=== PATIENT | female | born 1995 | race Caucasian/White ===

== ENCOUNTER 2017-05-09 22:19 | Outpatient (CLI) | payer OTHER ==
[~2017-05-09] VITALS: Ht 152.4 cm; Wt 72.9 kg
[~2017-05-09 22:19] MED LIST: ETON1VAG5
[2017-05-09 23:08] VITALS: Ht 152.4 cm; Wt 72.9 kg
[2017-05-09 23:09] VITALS: BP 115/63; PULSE 86; RESP 20
--- NOTE | 2017-05-10 00:16 | RADRPT ---
PROCEDURE: Obstetrical ultrasound greater than 14 weeks CLINICAL INDICATION: Decreased movement TECHNIQUE: Real time sonographic imaging of the gravid uterus is performed transabdominally and mu ltiple static reese scale and Doppler images are submitted for review as are measurements. The image s are reviewed on the PACS. COMPARISON: No relevant exams are available FINDINGS: The cervical os is closed with a normal cervical length of 4.1 cm. There is a single living intrauterine gestation in breech presentation. The heart beat is est imated at 142 bpm. The measurements are as follows: BPD:5.03 cm HC:18.70 cm AC:16.35 cm FL:3.77 cm Estimated gestational age is 21 weeks 3 days. The estimated date of delivery is 09/16/2017. The estimated weight is 436 grams. Placenta is anterior and grade 1. There is no evidence of placenta previa or abruption. The amniotic fluid is normal, the maximum vertical pocket estimated at 5 cm. RPTAT:HJJR IMPRESSION: 1. Single viable intrauterine gestation currently in breech presentation estimated at 21 weeks 3 day s with the estimated date of delivery 09/16/2017. 2. Anterior grade 1 placenta. 3. Cervical length of 4.1 cm. Physician Vaishali Date Time Electronically viewed and signed by Physician Vaishali on 05/10/2017 00:16 /
--- NOTE | 2017-05-10 01:13 | PN ---
Triage Information Date/Time May 10, 2017 Reason for visit: DFM (22-year-old female at 22 weeks complaining of decreased movement) Weeks of Gestation 22 weeks /Para 1 para 0 Diabetes: none Hypertention: none Objective Vital Signs Date Time Temp Pulse Resp B/P Pulse Ox O2 Delivery O2 Flow Rate FiO2 05/09/17 23:09 97.9 86 20 115/63 Room Air Heart Rate: 150's Heart Rate Comments Not applicable Contractions: None Exam Cervix is long and closed by ultrasound Results/Medications Imaging Results BPD: 5.03 cm HC: 18.70 cm AC: 16.35 cm FL: 3.77 cm Estimated gestational age is 21 weeks 3 days. The estimated date of delivery is 09/16/2017. The estimated weight is 436 grams. Placenta is anterior and grade 1. There is no evidence of placenta previa or abruption. The amniotic fluid is normal, the maximum vertical pocket estimated at 5 cm. 1. Single viable intrauterine gestation currently in breech presentation estimated at 21 weeks 3 days with the estimated date of delivery 09/16/2017. 2. Anterior grade 1 placenta. 3. Cervical length of 4.1 cm. Disposition: Discharge Assessment/Plan Patient expressed a desire to go home We will follow as outpatient Upon discharge patient was feeling the movement ENRICO FRIAS MD May 10, 2017 01:13
--- NOTE | 2017-05-10 01:36 | TRIAGE ---
OB Triage Datetime Report Generated by CPN: 05/10/2017 01:35 Datetime: 05/09/2017 22:55 Stage of : OB Triage Assessment Type: Triage Maternal Assessment Level of Consciousness: Fully Conscious DTR's/Clonus: DTRs 2+; No Clonus Headache: Denies Blurred Vision: No Respiratory Effort: Unlabored; Regular Rhythm; Equal Expansion Breath Sounds, Left: Clear and Equal Breath Sounds, Right: Clear and Equal Nausea/Vomiting: Denies RUQ Epigastric Pain: Denies Lower Extremities Edema: None Degree: None Upper Extremities Edema: None Degree: None Facial Edema: None Temperature Route: Oral Fall Risk Assessment History of Falling: (0) No Secondary Diagnosis: (0) No Ambulatory Aid: (0) Bedrest/Nurse Assist IV Therapy: (0) No Gait: (0) Normal/Bedrest/Immobile Mental Status: (0) Oriented to Own Ability Fall Score: 0 Fall Risk Score Definition: No Risk: No action required Labor Evaluation Frequency: none Monitor Mode: External Resting Tone [place]: Relaxed Heart Rate FHR Baseline Rate: 135 Monitor Mode: External US FHR Baseline Changes: No Baseline Change Variability: Moderate 6-25 bpm Accelerations: 15X15 Decelerations: None Pain Assessment Pain Scale: 0 Pain Presence: None/Denies Datetime: 05/09/2017 22:54 EGA: 22.6 Datetime: 05/09/2017 22:45 Time of Arrival: 05/09/2017 22:45 Arrived By: Ambulatory Arrived From: Home Chief Complaint: pt c/o decreased FM x 2 days and not feeling movement at all today. Pt also c/o dizziness past three days increasing daily. Movement: Absent Contractions: Denies/Absent Contractions: none Rupture of Membranes: Denies Vaginal Bleeding: None Vaginal Discharge: Denies Recent Sexual Intercouse: Yes Abdominal Trauma: Not Applicable Patient Complaints: Dizziness; Other Time Provider Notified: 05/09/2017 23:15 Provider Notified: León Initial Plan: ultrasound for cervical length, EFW and NIKOLE done. Pt given po hydration and now sta viri movement felt.
== END 2017-05-10 01:34 | disposition home or self-care (01) ==
LOC: OBT 22:19 → L-D 22:22 → OBT 05-10 01:34
PROVIDERS: ATTEND Obstetrics & Gynecology
DX: O36.8120 Decreased fetal movements, second trimester, not applicable or unspecified (principal); Z3A.22 22 weeks gestation of pregnancy
CPT/HCPCS: 76815; 76817; Z7500; G0463

== ENCOUNTER 2017-05-24 12:59 | Emergency (ER) | payer SELFPAY ==
[~2017-05-24 12:59] MED LIST changes: -ETON1VAG5; +PRENAT PO
== END 2017-05-24 15:05 | disposition left against medical advice (07) ==
LOC: E/R 12:59
DX: Z53.21 Procedure and treatment not carried out due to patient leaving prior to being seen by health care provider (principal)

== ENCOUNTER 2017-05-24 17:23 | Inpatient (IN) | payer OTHER ==
[~2017-05-24] VITALS: Ht 152.4 cm; Wt 73.1 kg
--- NOTE | 2017-05-24 02:22 | PN ---
Triage Information Date/Time Reason for visit: Uterine contractions Weeks of Gestation 23 3/7 /Para 1 Diabetes: none Hypertention: none Additional information 22 Year-old G1 with SIUP at 23 3/7 weeks presents with a chief complaint of UCS. She has been receiving her care with Dr. Traore. She states good movement. She denies nausea, vomiting, shortness of breath, chest pain, headache, visual changes, vaginal bleeding or LOF. Objective Exam General: Patient appears well, alert and oriented, NAD, appropriate mood and affect ABD: gravid, soft, non-tender. Back: No CVA tenderness (B/L) LE: No clubbing, cyanosis, edema, thigh or calf tenderness bilaterally FHT: 135 bpm , moderate variability with acceleration, no deceleration-category I Contractions: Irregular SVE: Closed/thick/high/ceph/intact Assessment/Plan 22 Year-old G1 with SIUP at 23 3/7 weeks with irreg ucs. Nom CBC, U?A. She received IVF and terbutaline. There was no further ucs. She has h/o drug use, currently denies any substance use. UDS performed which was neg. FHR: No sign of metabolic acidosis- Category I. Symptoms and sign of labor, preeclampsia, kick count discussed with patient, she voiced understanding. All of her questions answered. Patient was discharged home in stable condition with the appropriate discharge instructions provided. I would like patient to have close follow-up with her primary physician or outpatient clinic in 1-2 days or return to the ER for worsening symptoms or any other urgent concerns ALE CAT May 24, 2017 02:22
[2017-05-24 17:50] VITALS: BP 109/69; PULSE 110; RESP 20
[2017-05-24 17:53] VITALS: Ht 152.4 cm; Wt 73.1 kg
--- NOTE | 2017-05-24 20:34 | HP ---
Date/Time of Note Date/Time of Note DATE: 05/24/17 TIME: 20:28 OB - History Hx of Present Free Text/Dictation Referred back to hospital to 23 weeks complaining of chest pain back pain in her lower and upper area and onset of nausea vomiting in the hospital Estimated Due Date: Sep 16, 2017 : 1 Para: 0 Care: Good Care Ultrasounds: Normal mid trimester US Obstetrical Complications: None Medical Complications: None Past Family/Social History * Past Medical, Surgical, Family and Obstetric Histories reviewed from chart. Blood Type: A+ Rubella: immune RPR/VDRL: Negative GBS Status: Unknown HBsAG: Negative OB Admission Exam Vital Signs Vital Signs patient is tachycardic Vital Signs Date Time Temp Pulse Resp B/P Pulse Ox O2 Delivery O2 Flow Rate FiO2 05/24/17 17:50 99.2 110 20 109/69 100 Room Air Physical Exam HEENT: WNL Heart: Rhythm Normal Lungs: Clear, Equal Abdomen: WNL Extremities: Normal Reflexes: Normal Cervical Dilatation: None Effacement: 0% Station: -3 Membranes: Intact Heart Rate: 150's Contractions on Admission: None OB Assessment/Plan Other Assessment: Vague chest pain Vague lower back and upper back pain 23 weeks and 4 days gestation Onset of nausea vomiting in hospital Other plan: Obtain EKG because of tachycardia Will repeat labs including CBC CMP If necessary will refer to internal medicine for follow ENRICO FRIAS MD May 24, 2017 20:34
[2017-05-24] MEDS ORDERED: AL HYDROX/MG HYDROX/SIMETH 30 ML CUP PO PRN (21:00)
[2017-05-24] MEDS ORDERED: ACETAMINOPHEN 325 MG TAB PO PRN (21:00)
[2017-05-24] MEDS ORDERED: METOCLOPRAMIDE 10 MG INJ IV PRN (21:00)
[2017-05-24] MEDS ORDERED: MEPERIDINE 25 MG INJ IM PRN (21:00)
[2017-05-24] MEDS: LACTATED RINGER'S 1,000 ML IV SCH (21:32)
[2017-05-24 21:59] LABS: BASOPHILS % 0.2 % (0.0-2.0); EOSINOPHILS % 0.1 % (0.0-7.0); HEMATOCRIT 37.2 % (37.0-47.0); HEMOGLOBIN 12.4 g/dl (12.0-16.0); LYMPHOCYTES # 1.4 10^3/ul (0.8-2.9); LYMPHOCYTES % 8.8 % (15.0-51.0); MEAN CORPUSCULAR HEMOGLOBIN 29.5 pg (29.0-33.0); MEAN CORPUSCULAR HGB CONC 33.3 g/dl (32.0-37.0); MEAN CORPUSCULAR VOLUME 88.6 fl (82.0-101.0); MEAN PLATELET VOLUME 12.4 fl (7.4-10.4); MONOCYTES % 6.3 % (0.0-11.0); NEUTROPHILS % 83.9 % (39.0-77.0); PLATELET COUNT 212 10^3/UL (140-415); RED CELL DISTRIBUTION WIDTH 13.8 % (11.5-14.5); WHITE BLOOD COUNT 16.3 10^3/ul (4.8-10.8)
--- NOTE | 2017-05-25 00:08 | TRIAGE ---
OB Triage Datetime Report Generated by CPN: 05/25/2017 00:07 Datetime: 05/24/2017 23:30 Frequency: 0 Monitor Mode: External Duration (sec)2399: DENIES Resting Tone [place]: Relaxed Pain Scale: 7 Pain Presence: Intermittent Pain Type: Pressure Pain Location: Right Chest; Left Chest Pain Relief Measures: Comfort Measures Pain Assessment Comments: PT DENIES THE NEEDS FOR PAIN MEDS AT THIS TIME,WILL CONTINUE MONITORING. Datetime: 05/24/2017 22:23 Stage of : Antepartum Assessment Type: Ongoing Assessment Level of Consciousness: Fully Conscious DTR's/Clonus: DTRs 2+; No Clonus Headache: Denies Blurred Vision: No Respiratory Effort: Unlabored; Regular Rhythm; Equal Expansion Breath Sounds, Left: Clear and Equal Breath Sounds, Right: Clear and Equal Nausea/Vomiting: Denies RUQ Epigastric Pain: Denies Lower Extremities Edema: None Degree: None Upper Extremities Edema: None Degree: None Facial Edema: None Temperature Route: Oral History of Falling: (0) No Secondary Diagnosis: (0) No Ambulatory Aid: (0) Bedrest/Nurse Assist IV Therapy: (0) No Gait: (0) Normal/Bedrest/Immobile Mental Status: (0) Oriented to Own Ability Fall Score: 0 Fall Risk Score Definition: No Risk: No action required Datetime: 05/24/2017 20:25 Stage of : OB Triage Monitor Mode: External Resting Tone [place]: Relaxed Datetime: 05/24/2017 19:29 Stage of : OB Triage Headache: Generalized Blurred Vision: No Respiratory Effort: Unlabored Breath Sounds, Left: Clear and Equal Breath Sounds, Right: Clear and Equal Nausea/Vomiting: Present RUQ Epigastric Pain: Denies Facial Edema: None Monitor Mode: External Resting Tone [place]: Relaxed Pain Scale: 6 Pain Presence: Constant Pain Type: Dull Pain Location: Back; Right Chest; Left Chest Datetime: 05/24/2017 18:51 Stage of : OB Triage Level of Consciousness: Fully Conscious Headache: Denies Nausea/Vomiting: Denies Nausea/Vomiting: Denies RUQ Epigastric Pain: Denies RUQ Epigastric Pain: Present Frequency: 0 Monitor Mode: External Monitor Mode: External US Pain Scale: 9 Pain Presence: Intermittent Pain Type: Cramping; Ache Pain Location: Back; Head; Right Chest; Left Chest Pain Goal: 2 Datetime: 05/24/2017 17:38 Stage of : OB Triage Level of Consciousness: Fully Conscious Level of Consciousness: Fully Conscious DTR's/Clonus: DTRs 2+; No Clonus DTR's/Clonus: DTRs 2+ Headache: Denies Headache: Occipital Blurred Vision: No Blurred Vision: No Respiratory Effort: Unlabored; Regular Rhythm; Equal Expansion Breath Sounds, Left: Clear and Equal Breath Sounds, Right: Clear and Equal Nausea/Vomiting: Denies Nausea/Vomiting: Denies RUQ Epigastric Pain: Denies RUQ Epigastric Pain: Present Lower Extremities Edema: None Upper Extremities Edema: None Facial Edema: None Facial Edema: None History of Falling: (0) No Secondary Diagnosis: (0) No Ambulatory Aid: (0) Bedrest/Nurse Assist IV Therapy: (0) No Gait: (0) Normal/Bedrest/Immobile Mental Status: (0) Oriented to Own Ability Fall Score: 0 Fall Risk Score Definition: No Risk: No action required Frequency: 0 Monitor Mode: External FHR Baseline Rate: 155 Monitor Mode: External US Pain Scale: 9 Pain Presence: Intermittent Pain Type: Cramping; Ache Pain Location: Back; Head; Right Chest; Left Chest Pain Goal: 2 Datetime: 05/24/2017 17:20 Time of Arrival: 05/24/2017 17:20 EGA: 23.4 Arrived By: Ambulatory Arrived From: Home Chief Complaint: chest pain/back pain/ Movement: Present Rupture of Membranes: Denies Vaginal Bleeding: None Vaginal Discharge: Denies Recent Sexual Intercouse: Denies Abdominal Trauma: Not Applicable Patient Complaints: Back Pain Time Provider Notified: 05/24/2017 20:20 Provider Notified: Dr Traore Initial Plan: fht Datetime: 05/23/2017 16:45 Fall Score: 0 Fall Risk Score Definition: No Risk: No action required Datetime: 05/23/2017 16:43 EGA: 23.3 Datetime: 05/10/2017 01:00 Fall Score: 0 Fall Risk Score Definition: No Risk: No action required Datetime: 05/09/2017 22:55 Fall Score: 0 Fall Risk Score Definition: No Risk: No action required Datetime: 05/09/2017 22:54 EGA: 21.3
[2017-05-25] MEDS: LACTATED RINGER'S 1,000 ML IV SCH (01:16)
[2017-05-25] MEDS ORDERED: PRENATAL VITAMIN PO SCH (09:00)
[2017-05-25] MEDS ORDERED: FERROUS SULFATE (EC) 325 MG TAB PO SCH (09:00)
--- NOTE | 2017-05-25 19:43 | DS ---
Date/Time of Note Date/Time of Note DATE: 05/25/17 TIME: 19:41 Obstetrical Discharge Record Final Diagnosis Final Diagnosis: not delivered Other Final Diagnosis Nausea vomiting, vague chest pain Condition on Discharge Physical Assessment Voiding: Yes Bowel Movement: Yes Breast: Soft, non-tender, Filling Fundus: Other () Abdomen and Incision: Abdomen is gravid, heart tones present Episiotomy: Not applicable Calf Tenderness: No Patient Condition: Good ENRICO FRIAS MD May 25, 2017 19:43
--- NOTE | 2017-05-25 19:44 | PD.PPDC ---
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 Provider Information Physician Information 22-year-old female was admitted for nausea vomiting and vague chest and back pains which resolved spontaneously Diagnosis Final Diagnosis: Status post observation, 23+ weeks gestation Condition Patient Condition: Good Diet Diet: Resume Regular Diet Activity/Restrictions Activity: Normal Activity May Shower Restrictions: Nothing in the Vagina Follow-up Follow-up with Physician: 4, 5, Day/Days (In clinic for follow-up) Return to clinic for [employer] Instructions: Fever greater than 101 Chills Comment: Refer back to hospital if the symptoms recur care Refer back to hospital if patient has fever and chills ENRICO FRIAS MD May 25, 2017 19:44
--- NOTE | 2017-05-26 11:12 | RADRPT ---
Vent Rate: 80 bpm RR Interval: 0 msec OK Interval: 128 msec QRS Duration: 88 msec QT Interval: 374 msec QTC Interval: 431 msec P-R-T [place]: 57 - 38 - 40 degrees Normal sinus rhythm with sinus arrhythmia Normal ECG Electronically Signed By: Garland Porras [id number]
== END 2017-05-25 20:55 | disposition home or self-care (01) | DRG 780 ==
LOC: OBT 17:23 → L-D 17:25 → OBT 20:30 → OBG 20:30
PROVIDERS: ADMIT Obstetrics & Gynecology; ATTEND Obstetrics & Gynecology
DX: O47.02 False labor before 37 completed weeks of gestation, second trimester (principal); Z3A.23 23 weeks gestation of pregnancy
CPT/HCPCS: 36415; 85025; 93005; G0463; J2765; J7120

== ENCOUNTER 2017-09-06 22:17 | Outpatient (CLI) | payer OTHER ==
[~2017-09-06] VITALS: Ht 152.4 cm; Wt 80.2 kg
[2017-09-06 22:41] VITALS: Ht 152.4 cm; Wt 80.2 kg
[2017-09-06 22:42] VITALS: BP 125/79; PULSE 117; RESP 18
[2017-09-06 23:48] LABS: BASOPHILS % 0.1 % (0.0-2.0); HEMATOCRIT 37.3 % (37.0-47.0); HEMOGLOBIN 12.7 g/dl (12.0-16.0); LYMPHOCYTES # 0.8 10^3/ul (0.8-2.9); LYMPHOCYTES % 8.5 % (15.0-51.0); MEAN CORPUSCULAR HEMOGLOBIN 28.5 pg (29.0-33.0); MEAN CORPUSCULAR VOLUME 83.8 fl (82.0-101.0); MEAN PLATELET VOLUME 12.6 fl (7.4-10.4); MONOCYTE # 0.4 10^3/ul (0.3-0.9); MONOCYTES % 4.5 % (0.0-11.0); NEUTROPHIL # 8.4 10^3/ul (1.6-7.5); NEUTROPHILS % 86.5 % (39.0-77.0); PLATELET COUNT 161 10^3/UL (140-415); RED BLOOD COUNT 4.45 10^6/ul (4.20-5.40); RED CELL DISTRIBUTION WIDTH 14.2 % (11.5-14.5); WHITE BLOOD COUNT 9.7 10^3/ul (4.8-10.8)
[2017-09-06 23:56] LABS: ADD UMIC NO; UR ASCORBIC ACID 20 mg/dL (NEGATIVE); UR BILIRUBIN (Dip) NEGATIVE (NEGATIVE); UR BLOOD (Dip) NEGATIVE (NEGATIVE); UR CLARITY SLIGHTLY CLOUDY (CLEAR); UR COLOR YELLOW (YELLOW); UR GLUCOSE (Dip) NEGATIVE (NEGATIVE); UR KETONES (Dip) 1+ mg/dL (NEGATIVE); UR LEUKOCYTE ESTERASE (Dip) NEGATIVE Leu/ul (NEGATIVE); UR MUCUS FEW /HPF (NONE SEEN); UR NITRITE (Dip) NEGATIVE (NEGATIVE); UR RBC 0 /HPF (0-5); UR SPECIFIC GRAVITY (Dip) 1.024 (1.003-1.030); UR SQUAMOUS EPITHELIAL CELL FEW /HPF (FEW); UR TOTAL PROTEIN (Dip) NEGATIVE (NEGATIVE); UR UROBILINOGEN (Dip) 1+ mg/dL (NEGATIVE)
[2017-09-07 00:02] LABS: ALBUMIN 3.6 g/dl (3.3-4.9); ALBUMIN/GLOBULIN RATIO 1.02; BILIRUBIN,INDIRECT 0.5 mg/dl (0-1.1); BILIRUBIN,TOTAL 0.5 mg/dl (0.2-1.3); CREATININE 0.62 mg/dl (0.44-1.00); POTASSIUM 3.5 mmol/L (3.5-5.1); TOTAL PROTEIN 7.1 g/dl (6.1-8.1)
--- NOTE | 2017-09-07 02:44 | TRIAGE ---
OB Triage Datetime Report Generated by CPN: 09/07/2017 02:44 Datetime: 09/07/2017 01:40 Stage of : OB Triage Datetime: 09/07/2017 01:28 Labor Evaluation Frequency: 3-5 Monitor Mode: External Duration (sec)2399: 50-120 Quality: Mild Pattern: Normal: <= 5 Contractions in 10 Minutes Resting Tone [place]: Relaxed Heart Rate FHR Baseline Rate: 140 Monitor Mode: External US FHR Baseline Changes: No Baseline Change Variability: Moderate 6-25 bpm Accelerations: 15X15 Decelerations: None Category: Category I Datetime: 09/07/2017 00:30 Labor Evaluation Frequency: 3-7 Monitor Mode: External Duration (sec)2399: 60-120 Quality: Mild Pattern: Normal: <= 5 Contractions in 10 Minutes Resting Tone [place]: Relaxed Heart Rate FHR Baseline Rate: 150 Monitor Mode: External US FHR Baseline Changes: No Baseline Change Variability: Moderate 6-25 bpm Accelerations: 15X15 Decelerations: Variable Category: Category II Comments: us picking up maternal hr Datetime: 09/06/2017 23:30 Labor Evaluation Frequency: 2-6 Monitor Mode: External Duration (sec)2399: 60-100 Quality: Mild Pattern: Normal: <= 5 Contractions in 10 Minutes Resting Tone [place]: Relaxed Heart Rate FHR Baseline Rate: 160 Monitor Mode: External US FHR Baseline Changes: No Baseline Change Variability: Moderate 6-25 bpm Accelerations: 15X15 Decelerations: None Category: Category I Datetime: 09/06/2017 23:00 Vaginal Exam Dilatation (cms): 0.0 Effacement (%): 0 Station: -4 Exam By: alf Datetime: 09/06/2017 22:44 Assessment Type: Triage Maternal Assessment Level of Consciousness: Fully Conscious DTR's/Clonus: DTRs 2+; No Clonus Headache: Denies Blurred Vision: No Respiratory Effort: Unlabored; Regular Rhythm; Equal Expansion Breath Sounds, Left: Clear and Equal Breath Sounds, Right: Clear and Equal Nausea/Vomiting: Present RUQ Epigastric Pain: Denies Lower Extremities Edema: None Degree: None Upper Extremities Edema: None Degree: None Facial Edema: None Fall Risk Assessment History of Falling: (0) No Secondary Diagnosis: (0) No Ambulatory Aid: (0) Bedrest/Nurse Assist IV Therapy: (0) No Gait: (0) Normal/Bedrest/Immobile Mental Status: (0) Oriented to Own Ability Fall Score: 0 Fall Risk Score Definition: No Risk: No action required Datetime: 09/06/2017 22:37 Stage of : OB Triage Temperature Route: Oral Datetime: 09/06/2017 22:34 Monitor Mode: External Monitor Mode: External US Datetime: 09/06/2017 22:30 Time of Arrival: 09/06/2017 22:14 EGA: 38.4 Arrived By: Ambulatory Arrived From: Home Chief Complaint: N/V/D, ABDOMINAL PAIN, PRESSURE Movement: Decreased Contractions: Denies/Absent Rupture of Membranes: Denies Vaginal Bleeding: None Vaginal Discharge: Denies Recent Sexual Intercouse: Denies Abdominal Trauma: Not Applicable Patient Complaints: Nausea; Vomiting; Other Time Provider Notified: 09/06/2017 23:10 Provider Notified: CELIA Initial Plan: VS, EFM, SVE, CBC, CMP, UA, URINE CULTURE, PO HYDRATION Datetime: 05/25/2017 20:20 Heart Rate FHR Baseline Rate: 145 Monitor Mode: External US Datetime: 05/25/2017 20:00 Labor Evaluation Frequency: 0 Monitor Mode: External Duration (sec)2399: denies Resting Tone [place]: Relaxed Pain Assessment Pain Presence: None/Denies Pain Type: N/A Datetime: 05/25/2017 19:43 Stage of : Antepartum Assessment Type: Ongoing Assessment Maternal Assessment Level of Consciousness: Fully Conscious DTR's/Clonus: DTRs 2+; No Clonus Headache: Denies Blurred Vision: No Respiratory Effort: Unlabored; Regular Rhythm; Equal Expansion Breath Sounds, Left: Clear and Equal Breath Sounds, Right: Clear and Equal Nausea/Vomiting: Denies RUQ Epigastric Pain: Denies Lower Extremities Edema: None Degree: None Upper Extremities Edema: None Degree: None Facial Edema: None Temperature Route: Oral Fall Risk Assessment History of Falling: (0) No Secondary Diagnosis: (0) No Ambulatory Aid: (0) Bedrest/Nurse Assist IV Therapy: (0) No Gait: (0) Normal/Bedrest/Immobile Mental Status: (0) Oriented to Own Ability Fall Score: 0 Fall Risk Score Definition: No Risk: No action required Pain Assessment Pain Presence: None/Denies Datetime: 05/25/2017 13:13 Pain Assessment Pain Presence: None/Denies Datetime: 05/25/2017 12:03 Pain Assessment Pain Presence: None/Denies Datetime: 05/25/2017 10:20 Headache: Denies Blurred Vision: No Nausea/Vomiting: Denies RUQ Epigastric Pain: Denies Facial Edema: None Pain Assessment Pain Presence: None/Denies Datetime: 05/25/2017 10:16 Labor Evaluation Frequency: 0 Monitor Mode: External Resting Tone [place]: Relaxed Heart Rate FHR Baseline Rate: 140 Comments: aga Datetime: 05/25/2017 08:58 Labor Evaluation Frequency: 0 Monitor Mode: External Resting Tone [place]: Relaxed Datetime: 05/25/2017 07:50 Assessment Type: Ongoing Assessment Maternal Assessment Level of Consciousness: Fully Conscious DTR's/Clonus: DTRs 2+; No Clonus Headache: Denies Blurred Vision: No Respiratory Effort: Unlabored; Regular Rhythm; Equal Expansion Breath Sounds, Left: Clear and Equal Breath Sounds, Right: Clear and Equal Nausea/Vomiting: Denies RUQ Epigastric Pain: Denies Facial Edema: None Fall Risk Assessment History of Falling: (0) No Secondary Diagnosis: (0) No Ambulatory Aid: (0) Bedrest/Nurse Assist Gait: (0) Normal/Bedrest/Immobile Mental Status: (0) Oriented to Own Ability Datetime: 05/25/2017 07:48 Labor Evaluation Frequency: 0 Monitor Mode: External Resting Tone [place]: Relaxed Datetime: 05/25/2017 05:10 Labor Evaluation Frequency: 0 Monitor Mode: External Resting Tone [place]: Relaxed Datetime: 05/25/2017 04:10 Labor Evaluation Frequency: 0 Monitor Mode: External Duration (sec)2399: DENIES Resting Tone [place]: Relaxed Datetime: 05/25/2017 03:10 Labor Evaluation Frequency: 0 Monitor Mode: External Duration (sec)2399: DENIES Resting Tone [place]: Relaxed Pain Assessment Pain Presence: None/Denies Datetime: 05/25/2017 02:10 Labor Evaluation Frequency: 0 Monitor Mode: External Duration (sec)2399: DENIES Resting Tone [place]: Relaxed Pain Assessment Pain Presence: None/Denies Datetime: 05/25/2017 01:10 Labor Evaluation Frequency: 0 Monitor Mode: External Duration (sec)2399: DENIES Resting Tone [place]: Relaxed Pain Assessment Pain Presence: None/Denies Datetime: 05/25/2017 00:15 Pain Assessment Pain Presence: None/Denies Datetime: 05/25/2017 00:10 Labor Evaluation Frequency: 0 Monitor Mode: External Resting Tone [place]: Relaxed Datetime: 05/24/2017 23:10 Labor Evaluation Frequency: 0 Monitor Mode: External Duration (sec)2399: DENIES Resting Tone [place]: Relaxed Datetime: 05/24/2017 22:23 Fall Score: 0 Fall Risk Score Definition: No Risk: No action required Datetime: 05/24/2017 17:38 Fall Score: 0 Fall Risk Score Definition: No Risk: No action required Datetime: 05/24/2017 17:20 EGA: 23.4 Datetime: 05/23/2017 16:45 Fall Score: 0 Fall Risk Score Definition: No Risk: No action required Datetime: 05/23/2017 16:43 EGA: 23.3 Datetime: 05/10/2017 01:00 Fall Score: 0 Fall Risk Score Definition: No Risk: No action required Datetime: 05/09/2017 22:55 Fall Score: 0 Fall Risk Score Definition: No Risk: No action required Datetime: 05/09/2017 22:54 EGA: 21.3
--- NOTE | 2017-09-07 02:54 | PN ---
Triage Information Date/Time 09/07/17 Reason for visit: Abd/pelvic pain (nausea, vomiting , pelvic pressure) Weeks of Gestation 38w4d /Para primigravida Diabetes: none Hypertention: none Additional information last vomiting and diarrhea several hrs prior to triage at present able to keep water without nausea or vomiting Objective Vital Signs Date Time Temp Pulse Resp B/P Pulse Ox O2 Delivery O2 Flow Rate FiO2 09/06/17 22:42 100.1 117 18 125/79 Room Air Heart Rate Comments 160's Contractions: >10 Minutes Apart Exam ve closed/long/-4 abdomen no significant tenderness neg for referring tenderness CVA neg fpr tenderness Results/Medications Result Diagram: 09/06/17232509/06/17 2326 Results 24 hrs Laboratory Tests Test 09/06/17 23:26 09/06/17 23:35 White Blood Count 9.7 # Red Blood Count 4.45 Hemoglobin 12.7 Hematocrit 37.3 Mean Corpuscular Volume 83.8 Mean Corpuscular Hemoglobin 28.5 L Mean Corpuscular Hemoglobin Concent 34.0 Red Cell Distribution Width 14.2 Platelet Count 161 # Mean Platelet Volume 12.6 H Neutrophils % 86.5 H Lymphocytes % 8.5 L Monocytes % 4.5 Eosinophils % 0.0 Basophils % 0.1 Nucleated Red Blood Cells % 0.0 Neutrophils # 8.4 H Lymphocytes # 0.8 Monocytes # 0.4 Eosinophils # 0.0 Basophils # 0.0 Nucleated Red Blood Cells # 0.0 Sodium Level 135 Potassium Level 3.5 Chloride Level 105 Carbon Dioxide Level 19 L Anion Gap 15 Blood Urea Nitrogen 8 Creatinine 0.62 Glucose Level 84 Calcium Level 9.0 Total Bilirubin 0.5 Direct Bilirubin 0.00 Indirect Bilirubin 0.5 Aspartate Amino Transf (AST/SGOT) 24 Alanine Aminotransferase (ALT/SGPT) 34 Alkaline Phosphatase 139 H Total Protein 7.1 Albumin 3.6 Globulin 3.50 H Albumin/Globulin Ratio 1.02 Urine Color YELLOW Urine Clarity SLIGHTLY CLOUDY A Urine pH 5.0 Urine Specific [place] 1.024 Urine Ketones 1+ H Urine Nitrite NEGATIVE Urine Bilirubin NEGATIVE Urine Urobilinogen 1+ H Urine Leukocyte Esterase NEGATIVE Urine Microscopic RBC 0 Urine Microscopic WBC 2 Urine Squamous Epithelial Cells FEW Urine Mucus FEW A Urine Hemoglobin NEGATIVE Urine Glucose NEGATIVE Urine Total Protein NEGATIVE Disposition: Discharge Assessment/Plan IUP 38w4d AGE PLAN discharge home RTH prn with routine labor instructions CHICA YANG MD Sep 07, 2017 02:53
== END 2017-09-07 01:40 | disposition home or self-care (01) ==
LOC: OBT 22:17 → L-D 22:20 → OBT 09-07 01:40
PROVIDERS: ATTEND Obstetrics & Gynecology
DX: O26.893 Other specified pregnancy related conditions, third trimester (principal); R10.2 Pelvic and perineal pain; O21.9 Vomiting of pregnancy, unspecified; O62.9 Abnormality of forces of labor, unspecified; Z3A.38 38 weeks gestation of pregnancy
CPT/HCPCS: 36415; 80053; 81001; 85025; 87086; Z7500; 81003; G0463

== ENCOUNTER 2017-09-19 10:09 | Outpatient (CLI) | END 2017-09-19 11:50 | disposition home or self-care (01) ==

== ENCOUNTER 2017-09-21 12:30 | Inpatient (IN) | END 2017-09-27 18:30 | disposition home or self-care (01) | DRG 765 ==